=== PATIENT | female | born 1950 | race Caucasian/White ===

== ENCOUNTER → 2023-12-31 12:54 | Outpatient (BNVA) | payer MEDICARE, SELFPAY | PROVIDERS: PCP Internal Medicine; Referring Provider Internal Medicine; Visit Provider Physical Therapy Assistant | DX: Z12.11 Encounter for screening for malignant neoplasm of colon (principal); Z80.0 Family history of malignant neoplasm of digestive organs ==

== ENCOUNTER 2024-01-20 08:24 | Day surgery (SDC) | payer MEDICARE, SELFPAY ==
[2024-01-20 08:42] VITALS: BP 134/74; PULSE 67; RESP 18; TEMP 36.6; O2SAT 98
[2024-01-20] MEDS: Lactated Ringers 1,000 ML 80 ML IV (08:54)
--- NOTE | 2024-01-20 09:07 | W.ANESPRE ---
General Info Date of Service Date Performed: 01/20/24 Height: 5 ft 5 in Weight: 69.4 kg Body Mass Index (BMI): 25.4 Surgical Procedure: Operation Date: 01/20/24 10:20 Proposed Procedure Side Surgeon shane Slaughter MD Meds Allergies and Home Medications Allergies Allergy/AdvReac Type Severity Reaction Status Date / Time Penicillins Allergy Unknown Hives Verified 01/20/24 08:39 Ibuprofen Allergy Unknown Other (See Uncoded 01/20/24 08:39 Comment) Home Medication Medication Instructions Recorded sertraline 150 mg capsule 150 mg PO DAILY 10/08/23 lovastatin 40 mg tablet 40 mg PO QPM 12/31/23 Current Visit Medications: Current Medications Generic Name Dose Route Start Last Admin Trade Name Freq PRN Reason Stop Dose Admin Ringer's Solution 1,000 mls @ 80 mls/hr 01/20/24 06:00 01/20/24 08:54 IV 01/20/24 23:59 80 mls/hr INFUSION BEATRIZ Administration IV Miscellaneous Supplies 1 each 01/20/24 06:00 Iv Access IV 01/20/24 23:59 DIRECTED BEATRIZ Sodium Chloride 0 ml 01/20/24 06:00 Normal Saline Flush 10 Ml Syr IV 01/20/24 23:59 PRN PRN Sodium Chloride 0 ml 01/20/24 06:00 Normal Saline 10 Ml Vial IJ 01/20/24 23:59 DIRECTED PRN Sterile Water 0 ml 01/20/24 06:00 Water,Injection,Sterile 10 Ml Vial IJ 01/20/24 23:59 DIRECTED PRN PFSH Medical History Medical History Family history of carcinoma in situ of anal canal Depression BARBI (obstructive sleep apnea) Hyperlipidemia Essential hypertension Allergic rhinitis Surgical History Surgical History History of partial hysterectomy Tobacco Smoking/Tobacco Use Status: Current every day Tobacco Type: cigarettes Smoking packs per day: 0.5 Smoking cigarettes per day: 10.0 Alcohol Alcohol Intake: current Alcohol intake frequency: a few times a week Alcohol type: wine Substance Use Substance use type: does not use Vital Signs and Lab Results Vital Signs Most Recent Vital Signs in EMR: Most Recent Vital Signs Temp Pulse Resp BP Pulse Ox 36.6 C 67 18 134/74 98 06/19/24 08:42 01/20/24 08:42 01/20/24 08:42 01/20/24 08:42 01/20/24 08:42 Lab Results Blood Type / Crossmatch: No Data to Display Complete Blood Count: No Data to Display Complete Metabolic Panel: No Data to Display Liver Function Panel: No Data to Display Coagulation Panel: No Data to Display Cardiac Panel: No Data to Display Arterial Blood Gas: No Data to Display Venous Blood Gas: No Data to Display Pancreas Panel: No Data to Display Thyroid Panel: No Data to Display Infectious Disease: No Data to Display Blood Cultures: No Data to Display Toxicology Panel: No Data to Display Anesthesia Assessment and Plan Anesthesia History Personal History: No History of Anesthesia Complications Family History: No Family History of Anesthesia Complications Exercise Tolerance Exercise Tolerance: Metabolic Equivalents>4 Pertinent Negatives Pertinent Negatives: No Symptoms of GERD, No Major Cardiovascular Symptoms or Complaints and No Major Pulmonary Symptoms or Complaints Cardiac & Pulmonary Exam Cardiac Exam: Normal S1/S2 Heart Sounds Pulmonary Exam: Clear Bilateral Breath Sounds Implantable Cardiac Device Does patient have a Pacemaker or an ICD?: No Airway Exam Known Difficult Airway: No Mallampati Class: 2 Mouth Opening: Normal (> 3cm) Thyromental Distance: Greater than 3 cm Neck Range of Motion: Full ROM Neck Circumference: Normal Teeth Condition: Normal Dentition ASA Classification ASA Score: ASA 2 Emergency Case?: No NPO Status NPO Status: NPO Clears >2 hours, Solids >8 hours Anesthesia Plan Resuscitation Status: Full Code Anesthesia Technique: General Anesthesia Airway Planned: Natural Airway Monitors Used: Standard Monitors
[2024-01-20 09:09] VITALS: BMI 25.4
--- NOTE | 2024-01-20 09:26 | W.COLOREPORT ---
Date of service: 01/20/24 Time of Service: 09:26 Colonoscopy Report Procedure Description: PROCEDURES PERFORMED: 1. Colonoscopy with cold forceps polypectomy PREOPERATIVE DIAGNOSIS: Surveillance colonoscopy POSTOPERATIVE DIAGNOSIS: Colon polyps, grade 1 internal hemorrhoids SURGEON: Aide Slaughter MD INDICATION FOR PROCEDURE: the patient is a 73-year-old woman who does not have symptoms. She has a sister who had an anal canal melanoma. She had a colonoscopy 5 years ago and had precancerous polyps removed at an outside hospital and this is the reason she needs to have a colonoscopy at the [facility]-year [facility]. No family history of colon or rectal cancer. FINDINGS: Normal terminal ileum. In the rectum, a small 2 to 3 mm sessile polyp was removed with cold forceps technique. There were no polyps in the colon. There was no diverticular disease. Grade 1 internal hemorrhoids present. SURVEILLANCE interval/FOLLOW-UP: Repeat colonoscopy in 7 to 10 years.(Unless the polyp histology is an advanced polyp - not suspected) Unclear to me what the surveillance recommendations might change to be considering the sister history. I defer to the patient and her PCP to decide on a tighter surveillance interval if there is an increased risk felt to exist because of the anal melanoma in sister history. To my knowledge, there is not. SPECIMENS: Yes EBL: Minimal COMPLICATIONS: None QUALITY of prep: Excellent Procedure in detail: The patient gave written consent and was in agreement with the indications, the potential risks as well as the benefits of the procedure. They were taken to the endoscopy suite and laid in the left lateral decubitus position. A timeout was performed and anesthesia was administered which was tolerated well. I started the procedure. Digital rectal and visual examination was performed and grossly within normal limits. No suspicious lesions in or around or on the anoderm or in the anal canal. A well-lubricated flexible colonoscope was then introduced and passed without any notable difficulty all the way to the cecum identified by the ileocecal valve and the appendiceal orifice. The terminal ileum was intubated and looked normal. The scope was then slowly withdrawn with the above-noted findings. The patient tolerated the procedure well and was taken to the PACU in hemodynamically stable condition.
--- NOTE | 2024-01-20 09:54 | W.PM.DSUDISC ---
Date of service: 01/20/24 Time of Service: 09:54 Discharge Plan Disposition Patient Disposition: Home Condition: Good Discharge Details Attending Provider: Ravin Slaughter Primary Care Provider: Elva Iyer Home Meds and New Rx's Prescriptions: No Action lovastatin 40 mg tablet 40 mg PO QPM sertraline 150 mg capsule 150 mg PO DAILY Discharge Instructions Additional Instructions: FINDINGS: Everything looks healthy inside of you. A very small polyp was found and removed. This is nothing to worry about. This is why we do the surveillance colonoscopies. You can repeat another colonoscopy in 7 to 10 years. Activity:: Activity as Tolerated Diet:: As Tolerated
--- NOTE | 2024-01-20 10:31 | BOWEL_PTH ---
PATIENT: My Willett LOC: [facility] U#:[id number] AGE/SX: 73/F ROOM: RE01/20/[address]: Ravin Slaughter : 1950 BED: DIS: 01/20/2024 SPEC #: [id number] RECD: 01/20/24 13:10 STATUS: [facility] #: [id number] AIDA: 01/20/24 10:[address]: Ravin Slaughter DEPT: Surgical Specimen RECD BY: Della Segura ENTERED: 01/20/24 13:11 SP TYPE: Bowel OTHR DR: Elva Iyer Tissues: 1 - BIOPSY BOWEL Procedures: GROSS AND MICRO LEVEL 4 Comments: [id number]
[2024-01-20 10:41] VITALS: BP 111/64; PULSE 58; RESP 16; TEMP 36.1; O2SAT 100
[2024-01-20 11:11] VITALS: BP 125/71; PULSE 58; RESP 16; TEMP 36.3; O2SAT 99
--- NOTE | 2024-01-20 11:30 | W.ANESPOSTOP ---
Postoperative Evaluation Date, Time and Location Date Performed: 01/20/24 Time Performed: 11:20 Patient Location: Day Surgery Unit Vital Signs Most Recent Imported Vital Signs: Most Recent Vital Signs Temp Pulse Resp BP Pulse Ox 36.3 C L 58 L 16 125/71 99 01/20/24 11:11 01/20/24 11:11 01/20/24 11:11 01/20/24 11:11 01/20/24 11:11 Pain Score Most Recent Pain Score: Most Recent Pain Score Pain Level 0 01/20/24 11:11 Assessment Mental Status: Awake (Alert & Oriented to Patient Baseline) Airway and Respiratory Function: Patent airway with normal (patient baseline) respiratory exam Cardiovascular Function: Hemodynamically Stable Hydration Status: Adequately Hydrated Nausea & Vomiting: No Nausea or Vomiting Pain: Pt. Denies Any Pain Peripheral Nerve Block: Patient did not receive a nerve block
== END 2024-01-20 11:36 | disposition home or self-care (01) ==
PROVIDERS: PCP Internal Medicine; Visit Provider Student in an Organized Health Care Education/Training Program
PROC: 0DJD8ZZ Inspection of Lower Intestinal Tract, Via Natural or Artificial Opening Endoscopic (ICD-10-PCS; CPT 45378; principal; 2024-01-20 10:15)
DX: Z12.11 Encounter for screening for malignant neoplasm of colon (principal); K62.1 Rectal polyp; K64.0 First degree hemorrhoids
CPT/HCPCS: 45380; 00123; 88305; J2001; J2704

== ENCOUNTER → 2024-05-16 11:17 | Outpatient (BNVA) | payer MEDICARE, SELFPAY | PROVIDERS: PCP Internal Medicine; Referring Provider Internal Medicine; Visit Provider Surgery | DX: K64.5 Perianal venous thrombosis (principal); K64.8 Other hemorrhoids; Z84.89 Family history of other specified conditions; G47.33 Obstructive sleep apnea (adult) (pediatric); F32.A Depression, unspecified; I10 Essential (primary) hypertension; E78.5 Hyperlipidemia, unspecified | CPT/HCPCS: 99214 ==

== ENCOUNTER 2024-10-05 09:08 | Outpatient (REF) | payer MEDICARE, SELFPAY ==
[2024-10-05 20:09] LABS: ALT 23 U/L (14-59); AST 19 U/L (15-37); Albumin 3.5 g/dL (3.4-5.0); Alkaline Phosphatase 48 U/L (46-116); Anion Gap 8.9 mmol/L (3-11); BUN 17 mg/dL (7-18); Bilirubin, Total 0.45 mg/dL (0.2-1.0); CO2 26.1 mmol/L (21.0-32.0); Calcium 9.4 mg/dL (8.5-10.1); Calculated LDL 89 mg/dL (<100); Chloride 106 mmol/L (98-107); Cholesterol 201 mg/dL (<200); Estimated GFR 59.86 (mL/min/1.73m2); Glucose 112 mg/dL (74-106); HDL Cholesterol 92 mg/dL (>or=50); Potassium 4.2 mmol/L (3.5-5.1); Sodium 141 mmol/L (136-145); Total Protein 7.3 g/dL (6.4-8.2); Triglyceride 101 mg/dL (<150)
== END 2024-10-05 09:09 | disposition home or self-care (01) ==
LOC: NCHCN 09:08
PROVIDERS: PCP Internal Medicine; Visit Provider Physician Assistant
DX: E78.5 Hyperlipidemia, unspecified (principal)
CPT/HCPCS: 80053; 80061

== ENCOUNTER 2025-06-06 10:19 | Outpatient (REF) | payer MEDICARE, SELFPAY ==
[2025-06-06 19:36] LABS: HCT 41.0 % (36.0-46.0); HGB 13.2 g/dL (11.2-15.7); MCH 29.1 pg (27.0-33.0); MCHC 32.2 % (32.0-36.0); MCV 91 fL (80-95); MPV 9.7 fL (8.0-11.0); Platelet Count 270 10^3/uL (130-400); RBC 4.53 10^6/uL (3.93-5.22); RDW 13.4 % (11.7-14.6); RDW-SD 44.3 fL; WBC 7.06 10^3/uL (4.4-10.8)
[2025-06-06 20:07] LABS: Iron 68 ug/dL (50-170); Total Iron Binding Capacity 269 ug/dL (250-450); Transferrin Sat 25 % (15-50)
[2025-06-06 20:14] LABS: Ferritin 108 ng/mL (8-252); TSH (W/Ref FT4) 2.11 uIU/mL (0.36-3.74)
== END 2025-06-06 10:20 | disposition home or self-care (01) ==
LOC: NCHCN 10:19
PROVIDERS: PCP Internal Medicine; Visit Provider Physician Assistant
DX: R42 Dizziness and giddiness (principal); F32.A Depression, unspecified
CPT/HCPCS: 80053; 85027; 82728; 83540; 83550; 84443